=== PATIENT | male | born 1945 | race Caucasian/White ===

== ENCOUNTER 2016-08-31 12:08 | Inpatient (IN) | payer MEDICARE, MEDICAID ==
[~2016-08-31 12:08] MED LIST: ACETAMINOPHEN80 MG; AMARYL4 MG PO; ASPIR 8181 MG; ASPIRIN325 MG; BACTRIM DS1 TAB PO; BYSTOLIC10 MG PO; CATAPRES0.1 MG; CATAPRES0.1 MG PO; CEPHALEXIN500 M; CLONIDINE HCL0.1 M2 PO; COZAAR100 MG; COZAAR25 MG; DORYX100 M PO; GLIMEPIRIDE4 MG; GLUCOPHAGE XR500 MG; GLUCOPHAGE XR500 MG PO; GLUCOPHAGE500 M3 PO; GLUCOPHAGE500 MG; HUMULIN 70/30 V10 ML; HYZAAR 100-12.1 EACH PO; HYZAAR 100-12.51 TAB; HYZAAR 100-25 T1 TAB; K-DUR10 ME1 PO; LEVAQUIN500 MG PO; LEVAQUIN750 MG PO; LIPITOR10 M1 GT; LIPITOR10 M1 PO; LOSARTAN-HCTZ1 EAC2 PO; LYRICA50 MG; MAGNESIUM250 M1 PO; MAGNESIUM250 M2 PO; MAGNESIUM250 MG; METHYLIN10 MG; METHYLPHENIDATE10 M3 PO; METOPROLOL SUCC50 M1 PO; MOBIC15 M1 PO; MOBIC15 MG; NORCO 5/325 TAB1 TAB PO; NORTRIPTYLIHNE25 MG PO; NORTRIPTYLINE PO; NORVASC5 MG PO; NOVOLIN 70/30 V10 ML SQ; NOVOLIN 70100 UNITS/ SQ; PLAVIX75 M1 PO; PLAVIX75 MG; PLAVIX75 MG PO; POTASSIUM CHLO10 ME2 PO; PRADAXA75 MG PO; PREDNISONE5 MG PO; RITALIN10 MG; SKELAXIN800 MG; SMZ-TMP DS 800-1 TAB PO; SMZ-TMP DS TABL1 TAB PO; SULFAMETHOXAZO1 EAC5 PO; TOPROL PO; TYLENOL EXTRA500 M1 PO; TYLENOL325 M1 PO; TYLENOL500 MG PO; ULTRAM50 M1 PO; ULTRAM50 MG PO; [UNRECOGNIZED DRUG - OTHER]; [UNRECOGNIZED DRUG - OTHER] PO
[2016-08-31 13:26] LABS: INR 0.9 INR (0.9-1.1); PROTHROMBIN TIME 10.8 SECONDS (9.0-13.6)
[2016-08-31 23:56] LABS: POTASSIUM 4.6 mmol/L (3.5-5.3); SODIUM 140 mmol/L (135-146); eGFR VALUE FOR BLACK >90 mL/Min
[2016-09-01 00:01] LABS: INR 0.9 INR (0.9-1.1)
[2016-09-01 00:03] LABS: HCT-HEMATOCRIT 34.5 % (36.0-53.5); MCHC MEAN CORPUSCULAR HGB CONC 31.9 % (32.0-36.0); MCV (MEAN CELL VOLUME) 87.8 fl (82.0-96.0); MEAN PLATELET VOLUME 9.7 cmc (9.4-12.4); PLATELET COUNT 262 tho/cmm (150-450); RED BLOOD COUNT 3.93 mil/cmm (4.40-5.70); RED CELL DISTRIBUTION WIDTH 13.2 % (12.4-16.4)
[2016-09-01 00:08] LABS: BASO % 0.1 % (0-2); IMMATURE GRANULOCYTES ABSOLUTE 0.01 tho/cmm (0-0.03); IMMATURE GRANULOCYTES PERCENT 0.1 % (0-0.3); LYMPH % 7.5 % (20-45); LYMPH ABSOLUTE COUNT 0.6 tho/cmm (0.8-4.5); MONO % 2.6 % (0-12); MONOCYTE ABSOLUTE COUNT 0.2 tho/cmm (0.0-1.2); NEUTROPHIL ABSOLUTE COUNT 7.4 tho/cmm (1.6-8.0); NEUTROPHIL-AUTOMATED 7.4 tho/cmm (1.6-8.0); NEUTROPHILS % 89.7 % (40-80)
[2016-09-01 00:10] LABS: BLOOD UREA NITROGEN 12 mg/dl (6-24); CALCIUM 8.8 mg/dl (8.5-10.5); CHLORIDE 108 mmol/l (96-110)
[2016-09-01 00:17] LABS: ESR-ERYTHROCYTE SED RATE 20 mm/hr (0-20)
[2016-09-01 00:34] LABS: CREATININE 0.63 mg/dl (0.60-1.30)
[2016-09-01 00:35] LABS: ANION GAP 9 mmol/L (0-20)
[2016-09-01 00:36] LABS: CARBON DIOXIDE-VENOUS 28 mmol/L (21-33)
[2016-09-01 00:37] LABS: GLUCOSE 245 mg/dl (65-120)
[2016-09-01 02:18] LABS: BASO % 0.1 % (0-2); HCT-HEMATOCRIT 33.5 % (36.0-53.5); HGB-HEMOGLOBIN 10.8 gm/dl (13.5-17.0); IMMATURE GRANULOCYTES ABSOLUTE 0.02 tho/cmm (0-0.03); IMMATURE GRANULOCYTES PERCENT 0.2 % (0-0.3); LYMPH % 6.5 % (20-45); LYMPH ABSOLUTE COUNT 0.6 tho/cmm (0.8-4.5); MCH (MEAN CORPUSCULAR HGB) 28.2 pg (28.0-32.0); MCHC MEAN CORPUSCULAR HGB CONC 32.2 % (32.0-36.0); MCV (MEAN CELL VOLUME) 87.5 fl (82.0-96.0); MEAN PLATELET VOLUME 9.6 cmc (9.4-12.4); MONO % 4.5 % (0-12); MONOCYTE ABSOLUTE COUNT 0.4 tho/cmm (0.0-1.2); NEUTROPHILS % 88.7 % (40-80); PLATELET COUNT 274 tho/cmm (150-450); RED BLOOD COUNT 3.83 mil/cmm (4.40-5.70); RED CELL DISTRIBUTION WIDTH 13.3 % (12.4-16.4)
[2016-09-01 02:30] LABS: ALB/GLOB RATIO 0.9 (0.8-2.0); ALBUMIN 3.1 g/dl (3.5-5.0); ALKALINE PHOSPHATASE 42 U/L (33-138); ALT/SGPT 25 U/L (12-78); ANION GAP 14 mmol/L (0-20); AST/SGOT 30 U/L (10-40); BILIRUBIN,TOTAL 0.3 mg/dl (0.0-1.5); BLOOD UREA NITROGEN 12 mg/dl (6-24); CALCIUM 8.7 mg/dl (8.5-10.5); CARBON DIOXIDE-VENOUS 25 mmol/L (22-32); CHLORIDE 107 mmol/l (96-110); CREATININE 0.94 mg/dl (0.60-1.30); GLUCOSE 223 mg/dL (70-110); POTASSIUM 4.4 mmol/L (3.7-5.1); SODIUM 142 mmol/L (135-145); eGFR VALUE FOR BLACK >90 mL/Min
--- NOTE | 2016-09-03 12:08 | NUR ---
ROUNDING ON PATIENT WHEN HE STARTED HAVING RIGHT ARM WEAKNESS, STAT HEAD CT ENTERED AND STROKE SCALE COMPLETED. STROKE SCALE WAS A THREE.
[2016-09-05 06:23] LABS: BASO % 0.5 % (0-2); EOS % 11.3 % (0-7); EOSINOPHIL ABSOLUTE COUNT 0.7 tho/cmm (0.0-0.7); HCT-HEMATOCRIT 33.6 % (36.0-53.5); HGB-HEMOGLOBIN 10.7 gm/dl (13.5-17.0); IMMATURE GRANULOCYTES ABSOLUTE 0.01 tho/cmm (0-0.03); IMMATURE GRANULOCYTES PERCENT 0.2 % (0-0.3); LYMPH % 33.3 % (20-45); MCH (MEAN CORPUSCULAR HGB) 27.7 pg (28.0-32.0); MCHC MEAN CORPUSCULAR HGB CONC 31.8 % (32.0-36.0); MEAN PLATELET VOLUME 9.6 cmc (9.4-12.4); MONO % 11.8 % (0-12); MONOCYTE ABSOLUTE COUNT 0.7 tho/cmm (0.0-1.2); NEUTROPHIL ABSOLUTE COUNT 2.5 tho/cmm (1.6-8.0); NEUTROPHIL-AUTOMATED 2.5 tho/cmm (1.6-8.0); NEUTROPHILS % 42.9 % (40-80); PLATELET COUNT 296 tho/cmm (150-450); RED BLOOD COUNT 3.86 mil/cmm (4.40-5.70); RED CELL DISTRIBUTION WIDTH 13.3 % (12.4-16.4); WHITE BLOOD COUNT 5.9 tho/cmm (4.0-10.0)
[2016-09-05 06:39] LABS: ANION GAP 11 mmol/L (0-20); BLOOD UREA NITROGEN 14 mg/dl (6-24); CALCIUM 8.9 mg/dl (8.5-10.5); CARBON DIOXIDE-VENOUS 28 mmol/L (22-32); CHLORIDE 105 mmol/l (96-110); CREATININE 0.64 mg/dl (0.60-1.30); GLUCOSE 84 mg/dL (70-110); POTASSIUM 4.2 mmol/L (3.7-5.1); SODIUM 140 mmol/L (135-145); eGFR VALUE FOR BLACK >90 mL/Min
[2016-09-05] MEDS ORDERED: CYCLOBENZAPRINE5 M1 PO (12:41)
[2016-09-05] MEDS ORDERED: ASPIRIN81 M1 PO (12:43)
[2016-09-05] MEDS ORDERED: BACITRACIN1 G1 EXT (12:52)
[2016-09-05] MEDS ORDERED: SENOKOT-S TABL1 EACH PO (12:53)
[2016-10-17] MEDS ORDERED: OMEPRAZOLE20 M3 PO (11:58)
== END 2016-09-05 13:35 | disposition other institution (70) | DRG 466 ==
LOC: SHSC 12:08 → ORE 14:00 → PACU 16:20 → 5EA 17:43
PROVIDERS: Internal Medicine; ADMIT Orthopaedic Surgery Foot and Ankle Surgery
PROC: 0SR Lower Joints, Replacement (ICD-10-PCS; principal; 2016-08-31)
PROC: 0SPB09Z Removal of Liner from Left Hip Joint, Open Approach (ICD-10-PCS; 2016-08-31)
PROC: 0SUE09Z Supplement Left Hip Joint, Acetabular Surface with Liner, Open Approach (ICD-10-PCS; 2016-08-31)
PROC: 0SPE0JZ Removal of Synthetic Substitute from Left Hip Joint, Acetabular Surface, Open Approach (ICD-10-PCS; 2016-08-31)
DX: T84.89XA Other specified complication of internal orthopedic prosthetic devices, implants and grafts, initial encounter (principal); I63.232 Cerebral infarction due to unspecified occlusion or stenosis of left carotid arteries; E11.40 Type 2 diabetes mellitus with diabetic neuropathy, unspecified; G81.91 Hemiplegia, unspecified affecting right dominant side; D62 Acute posthemorrhagic anemia; Z96.642 Presence of left artificial hip joint; Y79.8 Miscellaneous orthopedic devices associated with adverse incidents, not elsewhere classified; T84.091A Other mechanical complication of internal left hip prosthesis, initial encounter; I10 Essential (primary) hypertension; E78.2 Mixed hyperlipidemia; G47.419 Narcolepsy without cataplexy; K21.9 Gastro-esophageal reflux disease without esophagitis; E11.51 Type 2 diabetes mellitus with diabetic peripheral angiopathy without gangrene; Z87.891 Personal history of nicotine dependence; Z79.4 Long term (current) use of insulin
CPT/HCPCS: C1713; C1751; C1776; J0171; J0690; J1650; J1815; J1885; J2795; Q9967

== ENCOUNTER 2016-10-19 09:18 | Inpatient (IN) | payer MEDICARE, MEDICAID ==
[~2016-10-19 09:18] MED LIST changes: +ASPIRIN81 M1 PO; +BACITRACIN1 G1 EXT; +CYCLOBENZAPRINE5 M1 PO; +OMEPRAZOLE20 M3 PO; +SENOKOT-S TABL1 EACH PO
[2016-10-19 10:27] LABS: PROTHROMBIN TIME 11.2 SECONDS (9.0-13.6)
[2016-10-21] MEDS ORDERED: MUPIROCIN22 G2 TP (09:50)
== END 2016-10-21 10:45 | DRG 39 ==
LOC: SHSB 09:18 → ORW 11:35 → PACU 13:53 → PCUA 15:00
PROVIDERS: ADMIT Surgery Vascular Surgery
PROC: 03CL0ZZ Extirpation of Matter from Left Internal Carotid Artery, Open Approach (ICD-10-PCS; principal; 2016-10-19)
PROC: 3E0234Z Introduction of Serum, Toxoid and Vaccine into Muscle, Percutaneous Approach (ICD-10-PCS; 2016-10-20)
DX: I65.22 Occlusion and stenosis of left carotid artery (principal); E11.51 Type 2 diabetes mellitus with diabetic peripheral angiopathy without gangrene; E11.621 Type 2 diabetes mellitus with foot ulcer; Z86.73 Personal history of transient ischemic attack (TIA), and cerebral infarction without residual deficits; L97.529 Non-pressure chronic ulcer of other part of left foot with unspecified severity; I10 Essential (primary) hypertension; Z79.02 Long term (current) use of antithrombotics/antiplatelets; Z79.82 Long term (current) use of aspirin; Z79.4 Long term (current) use of insulin; K21.9 Gastro-esophageal reflux disease without esophagitis; Z87.891 Personal history of nicotine dependence; G47.419 Narcolepsy without cataplexy; E78.2 Mixed hyperlipidemia; Z23 Encounter for immunization
CPT/HCPCS: G0009; J1580; J1644; J1815; J2250; J3010; J3370; J7030; J7040